=== PATIENT | female | born 2000 | race Caucasian/White ===

== ENCOUNTER → 2021-09-23 | Outpatient (CLI) | payer OTHER ==
[2021-09-23 17:44] LABS: HEMATOCRIT 41 % (35-52); HEMOGLOBIN 14.6 g/dL (11.5-16.0); LYMPHOCYTES % (AUTO) 41 % (12-44); MEAN CORPUSCULAR HEMOGLOBIN 30 pg (25-34); MEAN CORPUSCULAR HGB CONC 36 g/dL (32-36); MEAN CORPUSCULAR VOLUME 84 fL (80-99); MEAN PLATELET VOLUME 10.8 fL (9.0-12.2); NEUTROPHILS % (AUTO) 49 % (42-75); PLATELET COUNT 89 10^3/uL (130-400); WHITE BLOOD COUNT 7.8 10^3/uL (4.3-11.0)
[2021-09-23 17:45] LABS: BASOPHILS % (AUTO) 0 % (0-10); EOSINOPHILS # (AUTO) 0.1 10^3/uL (0.0-0.3); EOSINOPHILS % (AUTO) 1 % (0-10); LYMPHOCYTES # (AUTO) 3.2 X 10^3 (1.0-4.0); MONOCYTES # (AUTO) 0.6 X 10^3 (0.0-1.0); MONOCYTES % (AUTO) 8 % (0-12); NEUTROPHILS # (AUTO) 3.9 X 10^3 (1.8-7.8)
[2021-09-23 17:52] LABS: CARBON DIOXIDE 23 MMOL/L (21-32); CHLORIDE 105 MMOL/L (98-107); POTASSIUM 3.7 MMOL/L (3.6-5.0); SODIUM 140 MMOL/L (135-145)
[2021-09-23 17:53] LABS: ALANINE AMINOTRANSFERASE 24 U/L (0-55); ALBUMIN 4.4 GM/DL (3.2-4.5); ALKALINE PHOSPHATASE 94 U/L (40-136); BILIRUBIN,TOTAL 0.3 MG/DL (0.1-1.0); BUN/CREATININE RATIO 13; CALCIUM 9.6 MG/DL (8.5-10.1); CREATININE SERUM 0.75 MG/DL (0.60-1.30); GFR ESTIMATED 115; GLUCOSE 88 MG/DL (70-105); TOTAL PROTEIN 7.4 GM/DL (6.4-8.2)
== END ==
LOC: LAB FS 16:46
PROVIDERS: ATTEND Registered Nurse Emergency
DX: Z01.419 Encounter for gynecological examination (general) (routine) without abnormal findings (principal); Z23 Encounter for immunization; B37.3 Candidiasis of vulva and vagina; N92.5 Other specified irregular menstruation; N89.8 Other specified noninflammatory disorders of vagina
CPT/HCPCS: 36415; 80053; 80061; 84439; 84443; 84702; 85025

== ENCOUNTER → 2021-09-23 | Outpatient (CLI) | payer OTHER | LOC: LAB FS 12:19 | PROVIDERS: ATTEND Registered Nurse Emergency | DX: Z01.419 Encounter for gynecological examination (general) (routine) without abnormal findings (principal); N92.5 Other specified irregular menstruation; N89.8 Other specified noninflammatory disorders of vagina | CPT/HCPCS: 87210 ==

== ENCOUNTER → 2021-09-23 | Outpatient (CLI) | payer OTHER | LOC: LABNPT 14:48 | PROVIDERS: ATTEND Registered Nurse Emergency | DX: Z01.419 Encounter for gynecological examination (general) (routine) without abnormal findings (principal); N92.5 Other specified irregular menstruation; N89.8 Other specified noninflammatory disorders of vagina | CPT/HCPCS: 87491; 87591 ==

== ENCOUNTER → 2021-10-11 | Outpatient (CLI) | payer OTHER ==
[2021-10-11 13:05] LABS: BASOPHILS % (AUTO) 0 % (0-10); EOSINOPHILS # (AUTO) 0.1 10^3/uL (0.0-0.3); EOSINOPHILS % (AUTO) 1 % (0-10); HEMATOCRIT 41 % (35-52); HEMOGLOBIN 14.1 g/dL (11.5-16.0); LYMPHOCYTES # (AUTO) 3.3 10^3/uL (1.0-4.0); LYMPHOCYTES % (AUTO) 43 % (12-44); MEAN CORPUSCULAR HEMOGLOBIN 30 pg (25-34); MEAN CORPUSCULAR HGB CONC 34 g/dL (32-36); MEAN CORPUSCULAR VOLUME 86 fL (80-99); MEAN PLATELET VOLUME 10.7 fL (9.0-12.2); MONOCYTES # (AUTO) 0.6 10^3/uL (0.0-1.0); MONOCYTES % (AUTO) 7 % (0-12); NEUTROPHILS # (AUTO) 3.7 10^3/uL (1.8-7.8); NEUTROPHILS % (AUTO) 49 % (42-75); PLATELET COUNT 233 10^3/uL (130-400); WHITE BLOOD COUNT 7.7 10^3/uL (4.3-11.0)
[2021-10-11 13:20] LABS: BAND NEUTROPHILS 1 %; BASOPHILS % (MANUAL) 0 %; EOSINOPHILS % (MANUAL) 1 %; LYMPHOCYTES % (MANUAL) 21 %; MONOCYTES % (MANUAL) 7 %; NEUTROPHILS % (MANUAL) 48 %
[2021-10-11 13:21] LABS: ATYPICAL LYMPHOCYTES 22 %; PLATELET ESTIMATE NORMAL; RBC MORPH NORMAL
== END ==
LOC: LAB FS 12:42
PROVIDERS: ATTEND Registered Nurse Emergency
DX: R79.89 Other specified abnormal findings of blood chemistry (principal)
CPT/HCPCS: 36415; 85007; 85027

== ENCOUNTER → 2021-11-13 | Outpatient (CLI) | payer OTHER ==
--- NOTE | 2021-11-13 16:07 | Diagnostic Imaging Report ---
INDICATION: Medial knee pain. EXAMINATION: Right knee, 11/13/2021. FINDINGS: 4 views of the knee. There is no evidence for an acute fracture or dislocation. The joint spaces are well maintained. There is no significant soft tissue swelling. IMPRESSION: No acute process. Dictated by: Dictated on workstation # [id number]
== END ==
LOC: RAD FS 15:42
PROVIDERS: ATTEND General Practice
DX: M25.561 Pain in right knee (principal)
CPT/HCPCS: 73562

== ENCOUNTER → 2021-11-23 | Outpatient (CLI) | payer OTHER | LOC: LAB FS 11:56 | PROVIDERS: ATTEND Registered Nurse Emergency | DX: N89.8 Other specified noninflammatory disorders of vagina (principal) | CPT/HCPCS: 87210 ==

== ENCOUNTER → 2021-11-23 | Outpatient (CLI) | payer OTHER | LOC: LABNPT 10:00 | PROVIDERS: ATTEND Registered Nurse Emergency | DX: N89.8 Other specified noninflammatory disorders of vagina (principal); R35.0 Frequency of micturition | CPT/HCPCS: 87491; 87591 ==

== ENCOUNTER → 2021-12-06 | Outpatient (CLI) | payer OTHER ==
--- NOTE | 2021-12-06 15:28 | Diagnostic Imaging Report ---
EXAMINATION: Magnetic resonance imaging of the right knee without intravenous contrast. DATE: December 06, 2021. COMPARISON: Right knee radiographs November 13, 2021. INDICATION: 21-year-old female, right knee pain. TECHNIQUE: Multiplanar, multisequence non contrast enhanced MR imaging was accomplished. FINDINGS: MENISCI: The medial meniscus is intact. The lateral meniscus is intact. LIGAMENTS AND TENDONS: The anterior and posterior cruciate ligaments are intact. The medial collateral ligament is intact. The iliotibial band, mid third lateral capsular ligament, fibular collateral ligament, biceps femoris tendon, and conjoined tendon are intact. The quadriceps tendon and patella ligament are intact. JOINT: The articular cartilage surfaces are intact. There is no knee joint effusion, prominent synovitis, or intra-articular body. BONE: There is unremarkable bone marrow signal. Specifically, negative for fracture, osteomyelitis, osteonecrosis, or marrow replacing process. BURSAE AND SOFT TISSUES: No Houston's cyst. IMPRESSION: Unremarkable MRI of the right knee. Dictated by: Dictated on workstation # [id number]
== END ==
LOC: RAD 13:58
PROVIDERS: ATTEND Orthopaedic Surgery
DX: M25.561 Pain in right knee (principal)
CPT/HCPCS: 73721